=== PATIENT | female | born 1985 | race African-American/Black ===

== ENCOUNTER 2016-11-22 12:30 | Emergency (ER) | payer OTHER, MEDICARE ==
[~2016-11-22] VITALS: Ht 165.1 cm; Wt 112.0 kg
[~2016-11-22 12:30] MED LIST: ABILIFY30 M1 PO; AMBIEN5 M1 PO; IBUPROFEN600 M1 PO; PROAIR HFA8.5 GM INH; SUMATRIPTAN SUC25 M1 PO; TOPAMAX200 M1 PO; TRAZODONE HCL100 M1 PO
--- NOTE | 2016-11-22 13:51 | ED GENERAL ADULT ---
History of Present Illness General Chief Complaint: Chest Pain Stated Complaint: CP,LOW BACK PAIN,JOINT PAIN Source: patient, family, old records Exam Limitations: no limitations Vital Signs & Intake/Output Vital Signs & Intake/Output Vital Signs Date Time Temp Pulse Resp B/P Pulse O2 O2 Flow FiO2 Ox Delivery Rate 11/22 1526 97.4 84 16 115/76 100 Room Air 11/22 1421 98 Room Air 11/22 1242 98.1 105 18 115/78 98 Room Air Allergies Coded Allergies: NO KNOWN ALLERGIES (02/28/13) Reconcile Medications Albuterol Sulfate (Proair Hfa) 90 MCG HFA.AER.AD 2 PUF INH Q4-6 PRN PRN SHORTNESS OF BREATH (Reported) Aripiprazole (Abilify) 30 MG TABLET 1 TAB PO QAM MENTAL HEALTH (Reported) Ibuprofen 600 MG TABLET 1 TAB PO TID PRN HEADACHE (Reported) with food Naproxen (Naprosyn) 500 MG TABLET 1 TAB PO Q12H PRN pain Prazosin HCl 1 MG CAPSULE 1 CAP PO QPM UNKNOWN (Reported) Ranitidine (Ranitidine HCl) 150 MG TABLET 1 TAB PO BID GI (Reported) Sumatriptan Succinate 25 MG TABLET 1 TAB PO DAILY PRN HEADACHE (Reported) Topiramate (Topamax) 200 MG TABLET 1 TAB PO QPM MENTAL HEALTH (Reported) Trazodone HCl 100 MG TABLET 2 TAB PO QPM MENTAL HEALTH (Reported) Zolpidem Tartrate (Ambien) 5 MG TABLET 1 TAB PO QPM SLEEP (Reported) Triage Note: C/O BACK PAIN FOR FEW WEEKS WITH JOINT PAIN. CHEST PAIN AND SOB TODAY. NO DISTRESS NOTED AT TRIAGE, EKG SR. Triage Nurses Notes Reviewed? yes HPI: Patient is a 30 year old female presents complaining of chest pressure sensation that radiates underneath the left breast, onset 1100 AM today. Pain worsens with deep breath. Has not taken any medication for her symptoms. Sensation feels like her chest is caving in on her. Patient reports with deep breath she feels a constricting feeling around her chest and back. Bilateral lower extremity pain and joint pain for several months, unchanged. (KATERINA DE LA ROSA,ORI) Past History Travel History Traveled to [place] past 21 day No Medical History Any Pertinent Medical History? see below for history Neurological: NONE EENT: NONE Cardiovascular: NONE Respiratory: asthma Gastrointestinal: NONE Hepatic: NONE Renal: NONE Musculoskeletal: NONE Psychiatric: anxiety, depression Endocrine: NONE Surgical History Surgical History: L HAND SX Psychosocial History What is your primary language Armenian Tobacco Use: Never used ETOH Use: occasional use Illicit Drug Use: denies illicit drug use Family History Hx Contributory? Yes (family history of CAD) (ORI GIL) Review of Systems Review of Systems Constitutional: Denies: chills, fever. EENTM: Reports: no symptoms. Respiratory: Reports: short of breath. Denies: cough. Cardiovascular: Reports: see HPI. GI: Denies: abdominal pain, nausea, vomiting. Genitourinary: Reports: no symptoms. Musculoskeletal: Reports: joint pain, muscle pain. Skin: Reports: no symptoms. Neurological/Psychological: Reports: no symptoms. Hematologic/Endocrine: Reports: no symptoms. Immunologic/Allergic: Reports: no symptoms. (ORI GIL) Physical Exam Physical Exam General Appearance: well developed/nourished, alert, awake, obese Head: atraumatic, normal appearance Eyes: Bilateral: normal appearance, PERRL, EOMI. Ears, Nose, Throat: hearing grossly normal Neck: normal inspection, supple, full range of motion Respiratory: normal breath sounds, no respiratory distress, lungs clear, midsternal chest tenderness that reproduces the pain. Cardiovascular: regular rate/rhythm (no murmur) Peripheral Pulses: 2+ dorsalis pedis (R), 2+ dorsalis pedis (L) Gastrointestinal: soft, non-tender Back: normal inspection, normal range of motion, no vertebral tenderness Extremities: normal inspection, normal capillary refill, normal range of motion, no edema, no calf tenderness Neurologic/Psych: no motor/sensory deficits, awake, alert, oriented x 3, normal gait, normal mood/affect Skin: intact, normal color, warm/dry Lymphatic: no anterior cervical tomas Core Measures ACS in differential dx? Yes ASA ordered for poss ACS? No-ACS ruled out CVA/TIA Diagnosis: No Severe Sepsis Present: No Septic Shock Present: No (ORI GIL) Progress Differential Diagnoses I considered the following diagnoses in my evaluation of the patient: Plan of Care: Orders Procedure Date/time Status Add-on Test (ER Only) 11/22 1440 Active Telemetry/Drawbench Operator 11/22 1426 Active TROPONIN LEVEL 11/22 1426 Complete HUMAN BETA HCG SCREEN 11/22 142 Complete D-DIMER 11/22 142 Complete COMPREHENSIVE METABOLIC PANEL 11/22 142 Complete CBC WITHOUT DIFFERENTIAL 11/22 1425 Complete EKG 11/22 1231 Active Laboratory Tests 11/22/16 1439: Anion Gap 10, Estimated GFR > 60, BUN/Creatinine Ratio 15.6, Glucose 98, Calcium 9.9, Total Bilirubin 0.3, AST 20, ALT 42, Alkaline Phosphatase 71, Troponin I < 0.01, Total Protein 7.8, Albumin 4.4, Globulin 3.4, Albumin/Globulin Ratio 1.3, Total Beta HCG NEGATIVE, D-Dimer < 200, CBC w Diff NO MAN DIFF REQ, RBC 4.54, MCV 87.0, MCH 29.0, RDW 13.6, MPV 7.6, Gran % 69.3, Lymphocytes % 23.4, Monocytes % 4.9, Eosinophils % 0.4, Basophils % 2.0, Absolute Granulocytes 5.2, Absolute Lymphocytes 1.8, Absolute Monocytes 0.4, Absolute Eosinophils 0, Absolute Basophils 0.1, PUBS MCHC 33.3 11/22/2016 4:07:30 PM: Results of labs, imaging, EKG discussed with the patient and her . Symptoms for greater than 3 hours with no significant EKG changes, negative troponin. Patient low risk for acute coronary syndrome, appears stable for discharge with outpatient follow-up. (KATERINA DE LA ROSA,ORI) Diagnostic Imaging: Viewed by Me: Radiology Read. Discussed w/RAD: Radiology Read. CXR Impression: PATIENT: ABDOULAYE DE LEÓN PRESENT AGE: 30 PATIENT ACCOUNT NO: [id number] : 86 LOCATION: [facility] ORDERING PHYSICIAN: ORI DE LA ROSA SERVICE DATE: 11/22/16 EXAM TYPE: RAD - XRY-CHEST XRAY, PA AND LATERAL EXAMINATION: XR CHEST CLINICAL INFORMATION: Chest pain. COMPARISON: Chest 05/08/2015. TECHNIQUE: PA and lateral views of the chest are obtained. FINDINGS: The heart is normal in size. There is no congestion or focal consolidation. The bony thorax is unremarkable. IMPRESSION: No acute cardiopulmonary process. DICTATED BY: JOANN DACOSTA MD DATE/TIME DICTATED:11/05 COUNTERINTELLIGENCE SPECIALIST:CINDY DATE/TIME TRANSCRIBED:11/22/16 / 1536 CONFIDENTIAL, DO NOT COPY WITHOUT APPROPRIATE AUTHORIZATION. <Electronically signed in Other Vendor System> SIGNED BY: JOANN DACOSTA MD 11/22/16 154 Initial ED EKG: normal axis, normal intervals, normal p-waves, normal QRS complex, normal sinus rhythm, nonspecific ST T wave chg Prior EKG: unchanged Rhythm Strip: normal sinus rhythm (ORI GIL) Departure Departure Time of Disposition: 1600 Disposition: HOME OR SELF CARE Condition: Stable Clinical Impression Primary Impression: Costochondritis Referrals: LIEN EM MD (PCP/Family) Additional Instructions: Follow-up with the primary care doctor listed in your discharge paper to establish a doctor and for further evaluation. Return to the emergency department if any worsening of symptoms. Departure Forms: Customer Survey General Discharge Information Prescriptions: Current Visit Scripts Naproxen (Naprosyn) 1 TAB PO Q12H PRN pain #15 TAB (ORI GIL) PA/JOURNEYMAN MOLDER Co-Sign Statement Statement: ED Attending supervision documentation- [] I saw and evaluated the patient. I have also reviewed all the pertinent lab results and diagnostic results. I agree with the findings and the plan of care as documented in the PA's/JOURNEYMAN MOLDER's documentation. [X] I have reviewed the ED Record and agree with the PA's/JOURNEYMAN MOLDER's documentation. [] Additions or exceptions (if any) to the PAs/JOURNEYMAN MOLDER's note and plan are summarized below: [] (DERICK SUAZO DO) Critical Care Note Critical Care Note Critical Care Time: non-applicable (ORI GIL)
[2016-11-22] MEDS ORDERED: RANITIDINE HCL150 MG PO (14:22)
[2016-11-22] MEDS ORDERED: PRAZOSIN HCL1 M1 PO (14:23)
[2016-11-22 14:51] LABS: ABSOLUTE BASOPHIL COUNT 0.1 /CUMM (0.0-0.2); ABSOLUTE EOSINOPHIL COUNT 0 /CUMM (0.0-0.7); ABSOLUTE GRANULOCYTE CT 5.2 /CUMM (1.4-6.5); ABSOLUTE LYMPH COUNT 1.8 /CUMM (1.2-3.4); ABSOLUTE MONOCYTE COUNT 0.4 /CUMM (0.10-0.60); EOSINOPHIL % 0.4 % (0-5); GRANULOCYTE % 69.3 % (42.2-75.2); HEMATOCRIT 39.5 % (37-47); MEAN CORPUSCULAR HGB CONC 33.3 G/DL (33.0-37.0); MEAN PLATELET VOLUME 7.6 FL (7.4-10.4); PLATELET COUNT 355 /CUMM (130-400); RBC DISTRIBUTION WIDTH 13.6 % (11.5-14.5); RED BLOOD CELL CT 4.54 /CUMM (4.20-5.40); WHITE BLOOD CELL COUNT 7.5 /CUMM (4.8-10.8)
[2016-11-22 15:26] VITALS: BP 115/76
--- NOTE | 2016-11-22 15:41 | RADIOLOGY REPORT ---
EXAMINATION: XR CHEST CLINICAL INFORMATION: Chest pain. COMPARISON: Chest 05/08/2015. TECHNIQUE: PA and lateral views of the chest are obtained. FINDINGS: The heart is normal in size. There is no congestion or focal consolidation. The bony thorax is unremarkable. IMPRESSION: No acute cardiopulmonary process.
[2016-11-22] MEDS ORDERED: NAPROSYN500 M1 PO (16:01)
== END 2016-11-22 16:07 ==
LOC: ERH 12:30
PROVIDERS: Physician Assistant
DX: M94.0 Chondrocostal junction syndrome [Tietze] (principal); M54.5 Low back pain
CPT/HCPCS: 93005; 93010